=== PATIENT | female | born 1965 | race Caucasian/White ===

== ENCOUNTER 2019-07-19 05:42 | Emergency (ER) | payer OTHER ==
[2019-07-19] MEDS ORDERED: FENTANYL CITR 100 MCG/2 ML ONE (05:55)
[2019-07-19] MEDS ORDERED: ONDANSETRON 4 MG/2 ML VIAL ONE (05:55)
[2019-07-19 06:43] LABS: Absolute Lymphocytes (CBC) 2.4 K/uL (0.7-4.9); Basophils % 0.5 % (0-1.3); Hematocrit 37.9 % (36.0-45.0); Lymphocytes % 25.6 % (15.3-44.8); MPV 8.4 fL (7.6-11.3)
[2019-07-19 06:46] LABS: BUN Blood Urea Nitrogen 12 mg/dL (7-18); Bicarbonate 24 mmol/L (21-32); Glucose Level 107 mg/dL (74-106); Potassium 3.8 mmol/L (3.5-5.1); Sodium Level 140 mmol/L (136-145)
[2019-07-19] MEDS ORDERED: MORPHINE 4 MG/ML SYR ONE (06:58)
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
[2019-07-19 08:58] VITALS: BP 149/95; TEMP 97.2; O2SAT 98
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
== END 2019-07-19 08:44 | disposition home or self-care (01) ==
LOC: ER 05:42
DX: S42.002A Fracture of unspecified part of left clavicle, initial encounter for closed fracture (principal); V49.9XXA Car occupant (driver) (passenger) injured in unspecified traffic accident, initial encounter; Z88.0 Allergy status to penicillin; Z88.2 Allergy status to sulfonamides
CPT/HCPCS: 85025; 80048; 36415; 86900; 86850; 86901; 70450; 71250; 72125; 71045; 73030; J3010; J2405; 96374; 96375; 99284